=== PATIENT | male | born 2000 | race Caucasian/White ===

== ENCOUNTER 2023-08-11 12:06 | Day surgery (SDC) | payer OTHER ==
[2023-08-11] VITALS (10 sets, daily range): BP systolic 106–139; BP diastolic 47–81
[~2023-08-11] VITALS: Ht 175.3 cm; Wt 86.4 kg
[2023-08-11] MEDS ORDERED: LIDOCAINE 2% w/EPI 1:100,000 20 ML VIAL ONE (12:11)
[2023-08-11] MEDS ORDERED: ceFAZolin INJECTION 2,000 MG in NS (IVPB) 50 ML 50 ML IV NR (12:30)
[2023-08-11] MEDS ORDERED: LACTATED RINGERS 1,000 ML 1,000 ML IV PRN (12:45)
[2023-08-11] MEDS ORDERED: ROCURONIUM 50 MG/5 ML VIAL IV ONE (12:47)
[2023-08-11] MEDS ORDERED: LIDOCAINE PF 2% 5 ML VIAL ONE (12:47)
[2023-08-11] MEDS ORDERED: ONDANSETRON INJECTION 4 MG/2 ML (SDV) ONE (12:47)
[2023-08-11] MEDS ORDERED: proPOfol INJECTION 200 MG/20 ML VIAL IV ONE (12:47)
[2023-08-11] MEDS ORDERED: dexAMETHasone INJ 10 MG/ML 1 ML VIAL ONE (12:47)
[2023-08-11] MEDS ORDERED: SEVOFLURANE (ULTANE) 15 ML INHAL SOLN ONE (12:47)
[2023-08-11] MEDS ORDERED: fentaNYL INJECTION 100 MCG/2 ML VIAL ONE (12:47)
[2023-08-11] MEDS ORDERED: MIDAZOLAM INJ 2 MG/2 ML VIAL ONE (12:49)
[2023-08-11] MEDS ORDERED: LIDOCAINE 2% w/EPI 1:100,000 20 ML VIAL INJ ONE (13:38)
[2023-08-11] MEDS ORDERED: NEOSTIGMINE 1 MG/1ML 10 ML VIAL ONE (13:44)
[2023-08-11] MEDS ORDERED: GLYCOPYRROLATE INJ 0.2 MG/ML 2 ML VIAL ONE (13:44)
--- NOTE | 2023-08-11 14:13 | Anesthesia-General Post-Op ---
General Patient Condition Mental Status/LOC: Same as Preop Cardiovascular: Satisfactory Nausea/Vomiting: Absent Respiratory: Satisfactory Pain: Controlled Complications: Absent Post Op Complications Complications None Follow Up Care/Instructions Patient Instructions None needed. Anesthesia/Patient Condition Patient Condition Patient is doing well, no complaints, stable vital signs, no apparent adverse anesthesia problems. No complications reported per nursing. SUNIL SALAZAR CRNA Aug 11, 2023 14:12
--- NOTE | 2023-08-11 14:13 | Progress Note-Post Operative ---
Post-Operative Progess Note Surgeon (s)/Mica Miner (s) Surgeon GABO CHIU DO Mica Miner: None Pre-Operative Diagnosis PILONIDAL CYST Post-Operative Diagnosis PILONIDAL CYST Procedure & Operative Findings Date of Procedure 08/11/23 Procedure Performed/Findings EXCISION OF PILONIDAL CYST Anesthesia Type GET Estimated Blood Loss Estimated blood loss (mL): scant Specimens/Packing Specimens Removed pilonidal cyt GABO CHIU DO Aug 11, 2023 14:13
[2023-08-11] MEDS ORDERED: ACHD5005 PO (14:14)
[2023-08-11] MEDS ORDERED: ONDANSETRON INJECTION 4 MG/2 ML (SDV) IVP PRN (14:15)
[2023-08-11] MEDS ORDERED: MEPERIDINE INJ 50 MG/ML VIAL IVP ONE (14:15)
[2023-08-11] MEDS ORDERED: fentaNYL INJECTION 100 MCG/2 ML VIAL IVP ONE (14:15)
--- NOTE | 2023-08-11 14:16 | Discharge Inst-Surgical ---
Discharge Inst-Surgical Depart Medication/Instructions New, Converted or Re-Newed RX: Transmitted to Pharmacy Patient Instructions Follow up Appt: Make appointment for 1 week. [phone] Instructions: No lifting greater than 20 pounds. No strenuous activity. May shower in 24 hours, no tub bath or soaking. Use incentive spirometer at home as directed. No Smoking Skin/Wound Care: May remove bandages in am. You need to leave the sutures in place at least 14 days and then come in to have them removed. Symptoms to Report: Appetite Changes, Extremity Discoloration, Numbness/Tingling, Swelling Increased, Bleeding Excessive, Eyesight Changes, Pain Increased, Urine Color Change, Constipation(Persistent), Fever over 101 degree F, Pain/Pressure in chest, Urinating Difficulty, Cough Up/Vomit Blood, Heart Beat Irreg/Pounding, Pain/Pressure in jaw, Cramps in feet or legs, Lightheadedness, Pain/Pressure in shoulder, Diarrhea(Persistent), Memory Changes Suddenly, Questions/Concerns, Weight gain consecutive days, Dizziness/Fainting, Nausea/Vomiting, Shortness of Breath, Weight gain over 2 pounds If questions or concerns contact your physician Or seek help at emergency department. Activity Activity as Tolerated: Yes Activity Instructions: Avoid Stress to Incision Driving Instructions: No Driving/Refer to Dr. Quevedo Discharge Diet: No Restrictions Diet After 24 Hours: Clear Liquid if Nauseous If Any Problems/Questions/Issu: Contact Your Physician, Go to Emergency Room Skin/Wound Care Infection Signs and Symptoms: Increased Redness, Foul Odor of Wound, Increased Drainage, Skin Itchy or Has a Rash, Increased Swelling, Temperature Above 101 F Bathing Instructions: Shower Stitches/Jarocho/Dermabond Dis: Care of Stitches GABO CHIU DO Aug 11, 2023 14:15
--- NOTE | 2023-08-12 00:55 | OPERATIVE REPORT ---
DATE OF SERVICE: 08/11/2023 PREOPERATIVE DIAGNOSIS: Pilonidal cyst. POSTOPERATIVE DIAGNOSIS: Pilonidal cyst. PROCEDURE: Excision of pilonidal cyst with 2 layer closure. SURGEON: Andrea Calvo MD MOLD INSPECTOR: None. ANESTHESIA: General endotracheal tube. SPECIMEN: Pilonidal cyst. BLOOD LOSS: Less than 5 mL. FLUIDS: Per anesthesia. POSTOPERATIVE CONDITION: Stable. INDICATIONS FOR PROCEDURE: The patient is a 23-year-old male who has a pilonidal cyst and needed to get this excised. FINDINGS: The patient had a pilonidal cyst, four separate openings all the way down to the sacrum, removed and sent to pathology. DESCRIPTION OF PROCEDURE: After informed consent was obtained, the patient was brought to the operating room. He was intubated and placed on table in prone position. He was sterilely prepped and draped in normal fashion after first shaving the buttocks, in the gluteal cleft, there were three small openings and one larger opening. The small openings were about a millimeter with a large opening with 3-4 mm, two of them had hair coming out of them. Infiltrated local around this and made elliptical incision that was only about 0.5 cm wide, but it was about 6 to 7 cm long, made this incision with #15 blade, carried down through the skin into the subcutaneous tissue, then deepened down to subcutaneous tissue with Bovie electrocautery going around the pilonidal cyst all the way down to the sacrum, able to keep these intact and not get into them and remove them and passed off table to be sent to pathology. Hemostasis obtained using Bovie electrocautery, copiously irrigated with normal saline. At this point, elected to close because of the tissue was so close together, closed the deep tissue, the fascia with 3-0 Vicryl 4 interrupted sutures; then closed the skin with 7 vertical mattress 0 PDS sutures. Area was then cleaned and dried dressing placed. The patient tolerated the procedure. Sponge and needle count correct at the end of the case. Job ID: [id number] DocumentID: [id number] Dictated Date: 08/11/2023 15:51:06 Secretary Bookkeeper Date: 08/12/2023 00:53:00 Dictated By: ANDREA CALVO DO
== END 2023-08-11 16:00 | disposition home or self-care (01) ==
LOC: SDC 12:06
PROVIDERS: ATTEND Surgery
DX: L05.91 Pilonidal cyst without abscess (principal)
CPT/HCPCS: 87081